=== PATIENT | female | born 1995 | race Caucasian/White ===

== ENCOUNTER 2016-10-22 12:30 | Inpatient (IN) | payer OTHER ==
[2016-10-22] MEDS ORDERED: DEXTROSE 5%-LACTATED RINGERS 1,000 ML IV SCH (16:15)
[2016-10-22 16:20] VITALS: BMI 29.9
[2016-10-22 16:51] LABS: BASOPHIL 0.2 % (0-2.0); EOSINOPHIL 0.4 % (0-4.5); MCHC 34.1 g/dl (32.0-36.0); MEAN CELL VOLUME 93.7 fl (80-96); MEAN PLT VOLUME 8.4 fl (7.5-11.1); NEUTROPHILS 75.5 % (42.8-82.8); PLATELET COUNT 320 K/MM3 (134-434); RDW 13.6 % (11.6-15.6); WHITE BLOOD COUNT 11.3 K/mm3 (4.0-10.0)
[2016-10-22] MEDS ORDERED: BUTORPHANOL TARTRATE 1 MG/ML VIAL IVPUSH ONE (17:00)
[2016-10-22 17:11] LABS: INR 0.91 (0.82-1.09)
--- NOTE | 2016-10-22 17:15 | HP ---
Past Medical History - Primary Care Physician PCP:: Wilfrid Cam - Admission Chief Complaint: 40,2 weeks, by date, labor - Past Medical History ...: 2 ...Para: 1 ...Term: 1 ...: 0 ...Spon : 0 ...Induced : 0 ...Multiple Gestation: 0 ...LMP: 01/14/16 ... Weeks Gestation by Dates: 40.2 ...EDC by Dates: 10/20/16 ...EDC by Sono: 11/02/16 - Past Surgical History Hx Myomectomy: No Hx Transabdominal Cerclage: No - Smoking History Smoking history: Never smoked Have you smoked in the past 12 months: No - Alcohol/Substance Use Hx Alcohol Use: No Home Medications - Allergies Allergies/Adverse Reactions: Allergies Allergy/AdvReac Type Severity Reaction Status Date / Time No Known Allergies Allergy Verified 10/22/16 14:48 - Home Medications Home Medications: Ambulatory Orders Ferrous Sulfate 325 mg PO DAILY 10/22/16 Pnv95/Ferrous Fumarate/FA [ Vitamin Tablet] 1 each PO DAILY 10/22/16 Ibuprofen [Motrin -] 600 mg PO QID #28 tablet 10/23/16 Physical Exam - Maternity Vital Signs: Vital Signs Temperature 97.3 F L 10/22/16 15:20 Pulse Rate 68 10/22/16 17:00 Respiratory Rate 20 10/22/16 17:00 Blood Pressure 100/40 10/22/16 17:00 O2 Sat by Pulse Oximetry (%) - Labs Lab Results: CBC, BMP 10/22/16 16:00
[2016-10-22 17:27] LABS: CALCIUM 8.3 mg/dL (8.5-10.1); CREATININE 0.7 mg/dL (0.55-1.02)
[2016-10-22] MEDS ORDERED: BISACODYL 10 MG SUPP.RECT RC PRN (21:32)
[2016-10-22] MEDS ORDERED: oxyCODONE HCL 5 MG TABLET PO PRN (21:32)
[2016-10-22] MEDS ORDERED: BENZOCAINE 28 GM HEMORRHOIDAL OINTMENT TP PRN (21:32)
[2016-10-22] MEDS ORDERED: BENZOCAINE 20% 57 GM BOTTLE TP PRN (21:32)
[2016-10-22] MEDS ORDERED: METHYLERGONOVINE MALEATE 0.2 MG/1 ML AMP IM PRN (21:32)
[2016-10-22] MEDS ORDERED: WITCH HAZEL 50% (TUCKS) 40 PAD/JAR PAD TP PRN (21:32)
[2016-10-22] MEDS ORDERED: D5W-LR W/ 20 UNITS OXYTOCIN 1,000 ML IV SCH (21:45)
[2016-10-22] MEDS: IBUPROFEN 600 MG TABLET (FP) PO PRN (22:15)
[2016-10-22] MEDS: FERROUS SO4 325 MG TABLET (FP) PO SCH (23:09)
[2016-10-23] MEDS: IBUPROFEN 600 MG TABLET (FP) PO PRN ×3 (05:26→21:26)
[2016-10-23 08:04] LABS: BASOPHIL 0.2 % (0-2.0); EOSINOPHIL 0.3 % (0-4.5); MCH 31.7 pg (25.7-33.7); MEAN CELL VOLUME 93.5 fl (80-96); MEAN PLT VOLUME 8.2 fl (7.5-11.1); NEUTROPHILS 69.8 % (42.8-82.8); PLATELET COUNT 254 K/MM3 (134-434); RDW 13.5 % (11.6-15.6); WHITE BLOOD COUNT 14.2 K/mm3 (4.0-10.0)
[2016-10-23] MEDS: ACETAMINOPHEN 325 MG TABLET (FP) PO PRN (09:01)
[2016-10-23] MEDS: FERROUS SO4 325 MG TABLET (FP) PO SCH ×2 (09:38→21:24)
[2016-10-23] MEDS: PRENATAL VITAMINS W/ FOLIC ACID TABLET (FP) PO SCH (09:41)
[2016-10-23] MEDS ORDERED: INFLUENZA VACCINE 60 MCG/0.5 ML (P/F DISP.SYRIN 16-17) IM ONE (10:00)
[2016-10-23] MEDS ORDERED: PRENATAL VITAMINS W/ FOLIC ACID TABLET (FP) PO SCH (10:00)
[2016-10-23] MEDS ORDERED: PATIENT'S OWN MEDICATION (NON-FORMULARY) (Ferrous Sulfate [Ferrous Sulfate] 325 MG) PO SCH (10:00)
[2016-10-23] MEDS ORDERED: INFLUENZA VACCINE 45 MCG/0.5 ML (MDV 16-17) IM ONE (10:00)
[2016-10-23] MEDS ORDERED: PCA PUMP KEY 1 EACH EACH ONE (11:18)
[2016-10-23] MEDS ORDERED: SENNOSIDES/DOCUSATE COMBO (SENNA PLUS) TABLET (UD) PO PRN (22:00)
[2016-10-24] MEDS: IBUPROFEN 600 MG TABLET (FP) PO PRN (08:31)
[2016-10-24] MEDS: ACETAMINOPHEN 325 MG TABLET (FP) PO PRN (08:33)
[2016-10-24 08:44] VITALS: BP 107/50; PULSE 68; TEMP 98.4
--- NOTE | 2016-10-24 09:28 | PN ---
Post Progress Note - Subjective Subjective: no complains Post Day: 1 Type of Delivery: Vital Signs: Vital Signs Temperature 98.4 F 10/24/16 08:41 Pulse Rate 68 10/24/16 08:41 Respiratory Rate 20 10/24/16 08:41 Blood Pressure 107/50 10/24/16 08:41 O2 Sat by Pulse Oximetry (%) Breast Exam: Yes: Soft. No: Engorged Uterus: Yes: Fundus Firm, Fundus below umbilicus, Non-tender Lochia: Yes: Rubra Lochia, amount: Moderate Extremities: Yes: Calves non-tender Perineum: Yes: Intact Activity: Ambulating - Labs Labs: CBC WBC 14.2 K/mm3 (4.0-10.0) H 10/23/16 07:25 RBC 4.00 M/mm3 (3.60-5.2) 10/23/16 07:25 Hgb 12.7 GM/dL (10.7-15.3) 10/23/16 07:25 Hct 37.3 % (32.4-45.2) 10/23/16 07:25 MCV 93.5 fl (80-96) 10/23/16 07:25 MCHC 34.0 g/dl (32.0-36.0) 10/23/16 07:25 RDW 13.5 % (11.6-15.6) 10/23/16 07:25 Plt Count 254 K/MM3 (134-434) D 10/23/16 07:25 MPV 8.2 fl (7.5-11.1) 10/23/16 07:25 Neutrophils % 69.8 % (42.8-82.8) 10/23/16 07:25 Lymphocytes % 24.3 % (8-40) D 10/23/16 07:25 Monocytes % 5.4 % (3.8-10.2) 10/23/16 07:25 Eosinophils % 0.3 % (0-4.5) 10/23/16 07:25 Basophils % 0.2 % (0-2.0) 10/23/16 07:25 Assessment/Plan stable discharge today.
[2016-10-24] MEDS: FERROUS SO4 325 MG TABLET (FP) PO SCH (09:51)
[2016-10-24] MEDS: PRENATAL VITAMINS W/ FOLIC ACID TABLET (FP) PO SCH (09:52)
--- NOTE | 2016-10-27 08:31 | DS ---
Physical Exam-PSYCHIATRIC ASSISTANT Vital Signs: Vital Signs Temperature 98.4 F 10/24/16 08:41 Pulse Rate 68 10/24/16 08:41 Respiratory Rate 20 10/24/16 08:41 Blood Pressure 107/50 10/24/16 08:41 O2 Sat by Pulse Oximetry (%) Constitutional: Yes: Well Nourished, No Distress, Calm Eyes: Yes: WNL, Conjunctiva Clear, EOM Intact HENT: Yes: WNL, Atraumatic, Normocephalic Neck: Yes: WNL, Supple, Trachea Midline Cardiovascular: Yes: WNL, Regular Rate and Rhythm Respiratory: Yes: WNL, Regular, CTA Bilaterally Gastrointestinal: Yes: WNL ...Rectal Exam: Yes: WNL Renal/: Yes: WNL ....Post : Yes: Uterus firm, Uterus non-tender, Slight lochia rubra Breast(s): Yes: WNL Musculoskeletal: Yes: WNL Extremities: Yes: WNL Integumentary: Yes: WNL Neurological: Yes: WNL, Alert, Oriented ...Motor Strength: WNL Psychiatric: Yes: WNL, Alert, Oriented Labs: CBC, BMP 10/23/16 07:25 10/22/16 16:00 Delivery - Delivery Vaginal Delivery: Spontaneous (no complication) Type of Anesthesia: None Episiotomy/Laceration: Perineal Extension/lac, 1st degree EBL (cc): 300 Delivery, Single - Stages of Labor Date 1st Stage Initiatied: 10/22/16 Time 1st Stage Initiated: 07:00 Date 2nd Stage Initiated: 10/22/16 Time 2nd Stage Initiated: 21:00 Date of Delivery: 10/22/16 Time of Delivery: 21:19 Time Placenta Delivered: 21:25 Placenta: Yes: Spontaneous - Condition of Movie Theater Manager/Counter Supervisor Present: No Gender: Male Weight: 6 lb 6 oz Position: Left, OA Total Hours ROM (Hrs/Mins): 2h - 1 Minute Total Score: 9 5 Minutes Total Score: 9 - [place] Feeding Plan Initial Plan: Elected not to breastfeed exclusively throughout hospitalization Discharge Summary Reason For Visit: LABOR ASSESS Procedures: Principal: Condition: Good - Instructions Diet, Activity, Other Instructions: regular diet, follow up [facility] care 4 weeks PLEASE FOLLOW UP WITH IN FOUR WEEKS IF ANY HEAVY BLEEDING, FEVER, OR SEVERE PAIN CALL WARM LINE: [phone] Referrals: Wilfrid Cam MD [Staff Physician] - Disposition: HOME - Home Medications Comprehensive Discharge Medication List: Ambulatory Orders Ferrous Sulfate 325 mg PO DAILY 10/22/16 Pnv95/Ferrous Fumarate/FA [ Vitamin Tablet] 1 each PO DAILY 10/22/16 Ibuprofen [Motrin -] 600 mg PO QID #28 tablet 10/23/16
== END 2016-10-24 11:47 | disposition home or self-care (01) | DRG 560 ==
LOC: JDEL 12:30 → JLDR 15:20 → J3W 22:52
PROVIDERS: ADMIT Obstetrics & Gynecology; ATTEND Obstetrics & Gynecology
PROC: 10E0XZZ Delivery of Products of Conception, External Approach (ICD-10-PCS; principal; 2016-10-22)
PROC: 0WQNXZZ Repair Female Perineum, External Approach (ICD-10-PCS; 2016-10-22)
DX: O48.0 Post-term pregnancy (principal); O70.0 First degree perineal laceration during delivery; Z3A.40 40 weeks gestation of pregnancy; Z37.0 Single live birth
CPT/HCPCS: 36415; 59409; 80048; 85025; 85610; 85730; 86593; 86850; 86900; 86901; 90686; G0008

== ENCOUNTER 2018-10-28 17:48 | Emergency (ER) | payer OTHER ==
[2018-10-28] MEDS ORDERED: SODIUM CHLORIDE 1,000 ML IV STA (17:53)
--- NOTE | 2018-10-28 17:54 | PDOC ---
Rapid Medical Evaluation Time Seen by Provider: 10/28/18 17:51 Medical Evaluation: Allergies Allergy/AdvReac Type Severity Reaction Status Date / Time No Known Allergies Allergy Verified 10/22/16 14:48 10/28/18 17:51 I have performed a brief in-person evaluation of this patient. The patient presents with a chief complaint of: vaginal bleeding approx 9 weeks preg Pertinent physical exam findings: Pallor present. I have ordered the following: labs, TVUS The patient will proceed to the ED for further evaluation. 10/28/18 17:53 Discharge Disposition - Diagnosis Vaginal bleeding affecting early - Referrals - Patient Instructions - Post Discharge Activity
[2018-10-28 17:57] VITALS: BMI 22.1
--- NOTE | 2018-10-28 18:16 | PDOC ---
Attending Attestation - HPI HPI: 10/28/18 19:31 The patient is a 22 year old female () with no significant past medical history who presents to the emergency department with vaginal bleeding since this morning. The patient states that she took a positive at home test about 1 month ago. She denies any follow up with OB for care. The patient states that she was highly concerned for her secondary to her bleeding. She states that she soaked through about 10 pads today. The patient also reports some associated abdominal pain with her vaginal bleeding. She denies taking any medication. She denies any other symptoms or complaints. <Jeronimo Alvarenga - Last Filed: 10/28/18 19:31> - Resident Resident Name: Renny Vergara - ED Attending Attestation I have performed the following: I have examined & evaluated the patient, The case was reviewed & discussed with the resident, I agree w/resident's findings & plan, Exceptions are as noted - HPI HPI: 10/28/18 18:15 This 22 yo female presents stating she is approx 9 weeks and has vaginal bleeding PMH - Physicial Exam PE: 10/28/18 19:16 wnwd 22 yo female with brisk vaginal bleeding head ncat neck supple lungs cta b/l cvs [id number] ext no e/c/c abd no guarding, no rebound pelvic heavy vaginal bleeding,difficult to access the os,blood fills speculum ,there are large clots skin warm and dry no cvs tenderness neuro axox3,ambulatory - Medical Decision Making 10/28/18 19:18 imp threatened Ab,ectopic preg cbc,T and S, pelvic US,[facility] [place] 10/28/18 22:22 [facility] [place] uS in progress 10/28/18 22:25 Initial hemoglobin was 12 and her hematocrit was 35 Briefly, hemoglobin is 10 and repeat hematocrit is 28 10/28/18 22:[address] Cam and he recommended pitocin gtt 10/29/18 00:57 Dr Cam removed placenta and if the pt's bleeding improved she can be d/c on vibromycin 100 mg BID for one week 10/29/18 02:25 Pt re assessment reveals her vaginal bleeding is much improved and she'll be discharged home with antibiotics and motrin plan follow this week at [address] [place] [address] <Leila Dean - Last Filed: 10/29/18 02:26> Attestations - Attestations 10/28/18 19:32 Documentation prepared by Jeronimo Alvarenga, acting as rn medical surgical for Leila Dean MD <Jeronimo Alvarenga - Last Filed: 10/28/18 19:31>
--- NOTE | 2018-10-28 18:16 | PDOC ---
History of Present Illness - General Chief Complaint: Vaginal Bleeding Stated Complaint: BLEEDING SINCE 11:00 Time Seen by Provider: 10/28/18 17:51 History Source: Patient, Scaler Packer Used Exam Limitations: Language Barrier - History of Present Illness Initial Comments: History is limited by language barrier - [employer] phone used for translation. Patient is standing up in the room - when asked why she says bc my stomach hurts alot and she thinks she is losing the baby. 22 yo f w no reported pmh says that she took a positive home test once month ago and today she started losing alot of blood and is concerned that she is losing her . The vaginal bleeding started this morning at 11 am and has not stopped. She can't calculate how much blood she lost but says alot. She has soaked through more than 10 pads today alone. She also endorses a significant amount of abdominal pain which won't go away. She has not taken any medications for the pain. She has not gone to the clinic yet for any care. She denies having taken any pre- vitamins. PCP: Doesn't know his name FUELS ENGINEER: Dr. Cam PSH: None reported LMP: Aug 19 2018 Social Hx: Denies smoking, alcohol, or other drug usage. Allergies: Seasonal, NKDA Past History - Past Medical History Allergies/Adverse Reactions: Allergies Allergy/AdvReac Type Severity Reaction Status Date / Time No Known Allergies Allergy Verified 10/22/16 14:48 Home Medications: Ambulatory Orders Ferrous Sulfate 325 mg PO DAILY 10/22/16 Pnv No.95/Ferrous Fum/Folic AC [ Vitamin Tablet] 1 each PO DAILY Ibuprofen [Motrin -] 600 mg PO QID #28 tablet 10/23/16 Asthma: No Cancer: No Cardiac Disorders: No COPD: No Diabetes: No HTN: No Seizures: No Thyroid Disease: No - Suicide/Smoking/Psychosocial Hx Smoking History: Never smoked Have you smoked in the past 12 months: No Hx Alcohol Use: No Drug/Substance Use Hx: No Hx Substance Use Treatment: No Review of Systems - Review of Systems Able to Perform ROS?: Yes Comments:: CONSTITUTIONAL: Absent: fever, no chills, no fatigue EYES: Absent: visual changes ENT: Absent: ear pain, no sore throat CARDIOVASCULAR: Absent: chest pain, no palpitations RESPIRATORY: Absent: cough, no SOB GI: Present: Abdominal pain, nausea Absent: no vomiting, no constipation, no diarrhea GENITOURINARY: Present: Hematuria Absent: dysuria, no frequency, no hematuria MUSKULOSKELETAL: Present: Back pain Absent: no arthralgia, no myalgia SKIN: Absent: rash NEURO: Absent: headache *Physical Exam - Vital Signs Last Vital Signs Temp Pulse Resp BP Pulse Ox 98.0 F 97 H 18 116/68 99 10/28/18 17:51 10/28/18 17:51 10/28/18 17:51 10/28/18 17:51 10/28/18 17:51 - Physical Exam Comments: GENERAL: The patient is in a significant amount of pain and crying. Moderate distress. HEENT: Normocephalic, atraumatic. PERRL, EOM intact. CARDIOVASCULAR: Normal S1, S2. Tachycardic rate and regular rhythm. PULMONARY: No evidence of respiratory distress. Lungs clear to auscultation bilaterally. No wheezing, rales or rhonchi. ABDOMEN: There is a significant amount of supra-pubic TTP. EXTREMITIES: Normal ROM in all four extremities. No gross deformities. SKIN: Warm, dry. No rash NEUROLOGICAL: No focal neurological deficits. ED Treatment Course - LABORATORY CBC & Chemistry Diagram: 10/28/18 21:48 10/28/18 18:04 Medical Decision Making - Medical Decision Making History is limited by language barrier - [employer] phone used for translation. Patient is standing up in the room - when asked why she says bc my stomach hurts alot and she thinks she is losing the baby. 22 yo f w no reported pmh says that she took a positive home test once month ago and today she started losing alot of blood and is concerned that she is losing her . The vaginal bleeding started this morning at 11 am and has not stopped. She can't calculate how much blood she lost but says alot. She has soaked through more than 10 pads today alone. She also endorses a significant amount of abdominal pain which won't go away. She has not taken any medications for the pain. She has not gone to the clinic yet for any care. She denies having taken any pre- vitamins. VS: WNL DDx: Inevitable Plan: Labs, Urine, TVUS, Clutch Mechanic consult - Dorina, Analgesia, re-assess. Patient's original Hb was 12.3 on ER admission. 3 hours later Hb decreased to 10. Clutch Mechanic consult - Dorina - He requests patient to be put on 30 units of oxytocin in normal saline and he will come evaluate the patient. Dr. Cam is not sure if he wants to do a D&C. He came down to the Er, examined the patient and took out most of her uterine contents. - He wants her on ptocin and will re-evaluate her at 12:30 am. - Will admit the patient to observation for further care and management. - Patient microblogged to hospitalist for admission at 11:10 - Hospitalist rejected admission and said to admit the patient to [facility]. - Called Dr. Cam for Admission. - Patient signed out to Dr. Agustin to complete patient's admission to [facility] and further disposition. *DC/Admit/Observation/Transfer Diagnosis at time of Disposition: Vaginal bleeding affecting early , Inevitable - Discharge Dispostion Condition at time of disposition: Guarded Decision to Admit order: Yes - Referrals - Patient Instructions - Post Discharge Activity
[2018-10-28 18:22] LABS: BASO % 0.4 % (0-2.0); EOS % 0.5 % (0-4.5); HEMATOCRIT 35.9 % (32.4-45.2); HEMOGLOBIN 12.3 GM/dL (10.7-15.3); LYMPH % 16.8 % (8-40); MCH 32.4 pg (25.7-33.7); MCHC 34.4 g/dl (32.0-36.0); MEAN CELL VOLUME 94.2 fl (80-96); MEAN PLT VOLUME 7.6 fl (7.5-11.1); MONO % 4.9 % (3.8-10.2); NEUT % 77.4 % (42.8-82.8); PLATELET COUNT 313 K/MM3 (134-434); RBC 3.81 M/mm3 (3.60-5.2); WHITE BLOOD COUNT 9.2 K/mm3 (4.0-10.0)
[2018-10-28 18:54] LABS: INR 1.04 (0.83-1.09); PROTHROMBIN TIME (PATIENT) 12.3 SEC (9.7-13.0)
[2018-10-28 19:22] LABS: ALBUMIN 3.9 g/dl (3.4-5.0); ALK PHOS 58 U/L (45-117); ANION GAP 10 MMOL/L (8-16); BILIRUBIN,TOTAL 0.8 mg/dL (0.2-1); BLOOD UREA NITROGEN 10 mg/dL (7-18); CALCIUM 8.5 mg/dL (8.5-10.1); CHLORIDE 105 mmol/L (98-107); CO2 23 mmol/L (21-32); CREATININE 0.5 mg/dL (0.55-1.3); GLUCOSE,RANDOM 118 mg/dL (74-106); POTASSIUM 3.5 mmol/L (3.5-5.1); SGOT/AST 14 U/L (15-37); SGPT/ALT 20 U/L (13-61); SODIUM 138 mmol/L (136-145); TOT PROT 7.2 g/dl (6.4-8.2)
[2018-10-28 20:43] LABS: EPI CELLS 0.7 /HPF (0-5/HPF); PH,URINE 5.5 (5.0-8.0); URINE APPEARANCE CLEAR; URINE BACTERIA 0.2 /hpf (NEGATIVE); URINE BILIRUBIN NEGATIVE (NEGATIVE); URINE CASTS 3 /hpf (0-8); URINE COLOR YELLOW; URINE GLUCOSE (UA) NEGATIVE (NEGATIVE); URINE KETONE TRACE (NEGATIVE); URINE LEUK ESTERASE TRACE (NEGATIVE); URINE NITRITE NEGATIVE (NEGATIVE); URINE PROTEIN TRACE (NEGATIVE); URINE RBC 898 /hpf (0-4); URINE WBC 1 /hpf (0-5)
[2018-10-28 21:58] LABS: BASO % 0.2 % (0-2.0); EOS % 0.5 % (0-4.5); HEMATOCRIT 28.9 % (32.4-45.2); LYMPH % 20.9 % (8-40); MCH 32.7 pg (25.7-33.7); MCHC 34.7 g/dl (32.0-36.0); MEAN CELL VOLUME 94.4 fl (80-96); MEAN PLT VOLUME 7.7 fl (7.5-11.1); NEUT % 73.4 % (42.8-82.8); PLATELET COUNT 258 K/MM3 (134-434); RBC 3.07 M/mm3 (3.60-5.2); RDW 12.8 % (11.6-15.6); WHITE BLOOD COUNT 10.3 K/mm3 (4.0-10.0)
[2018-10-28] MEDS ORDERED: OXYTOCIN 20 UNITS in 0.9% NS 1000 ML INFUS.BAG IV ONE (22:26)
[2018-10-28] MEDS ORDERED: HYDROmorphone HCL CARPU-JECT 2 MG/1 ML DISP.SYRIN IVPUSH ONE (22:38)
[2018-10-28] MEDS ORDERED: HYDROmorphone HCl 2 MG/ML VIAL ONE (22:43)
[2018-10-28] MEDS ORDERED: SODIUM CHLORIDE IVPB ONE (22:45)
[2018-10-28] MEDS ORDERED: OXYTOCIN IVPB ONE (22:45)
[2018-10-28] MEDS ORDERED: OXYTOCIN 30 UNITS in 0.9% NS 30 UNIT/500 ML INFUS.BAG IVPB ONE (22:45)
[2018-10-29] MEDS ORDERED: DOXYCYCLINE HYCLATE 100 MG CAPSULE PO ONE ×2 (00:55→01:05)
--- NOTE | 2018-10-29 00:55 | PDOC ---
*Physical Exam - Vital Signs Last Vital Signs Temp Pulse Resp BP Pulse Ox 98.3 F 74 18 116/62 99 10/28/18 22:22 10/28/18 22:22 10/28/18 22:22 10/28/18 22:22 10/28/18 22:22 ED Treatment Course - LABORATORY CBC & Chemistry Diagram: 10/28/18 21:48 10/28/18 18:04 - ADDITIONAL ORDERS Additional order review: Laboratory Results 10/28/18 10/28/18 10/28/18 19:45 18:04 18:04 PT with INR INR Sodium 138 Potassium 3.5 Chloride 105 Carbon Dioxide 23 Anion Gap 10 BUN 10 Creatinine 0.5 L Creat Clearance w eGFR 154.28 Random Glucose 118 H Calcium 8.5 Total Bilirubin 0.8 AST 14 L ALT 20 Alkaline Phosphatase 58 Total Protein 7.2 Albumin 3.9 Beta HCG, Quant 3353.2 Urine Color Yellow Urine Appearance Clear Urine pH 5.5 Ur Specific [place] 1.025 Urine Protein Trace Urine Glucose (UA) Negative Urine Ketones Trace H Urine Blood 3+ H Urine Nitrite Negative Urine Bilirubin Negative Urine Urobilinogen 1.0 Ur Leukocyte Esterase Trace Urine WBC (Auto) 1 Urine RBC (Auto) 898 Urine Casts (Auto) 3 U Epithel Cells (Auto) 0.7 Urine Bacteria (Auto) 0.2 Blood Type O POSITIVE Antibody Screen Negative 10/28/18 18:04 PT with INR 12.30 INR 1.04 Sodium Potassium Chloride Carbon Dioxide Anion Gap BUN Creatinine Creat Clearance w eGFR Random Glucose Calcium Total Bilirubin AST ALT Alkaline Phosphatase Total Protein Albumin Beta HCG, Quant Urine Color Urine Appearance Urine pH Ur Specific [place] Urine Protein Urine Glucose (UA) Urine Ketones Urine Blood Urine Nitrite Urine Bilirubin Urine Urobilinogen Ur Leukocyte Esterase Urine WBC (Auto) Urine RBC (Auto) Urine Casts (Auto) U Epithel Cells (Auto) Urine Bacteria (Auto) Blood Type Antibody Screen 10/28/18 10/28/18 21:48 18:04 RBC 3.07 L 3.81 MCV 94.4 94.2 MCHC 34.7 34.4 RDW 12.8 13.0 MPV 7.7 7.6 Neutrophils % 73.4 77.4 Lymphocytes % 20.9 D 16.8 D Monocytes % 5.0 4.9 Eosinophils % 0.5 0.5 Basophils % 0.2 0.4 - Medications Given in the ED: ED Medications Discontinued Medications Generic Name Dose Route Start Last Admin Trade Name Morris PRN Reason Stop Dose Admin Hydromorphone HCl 0.5 mg 10/28/18 22:38 10/28/18 22:47 Dilaudid Injection - IVPUSH 10/28/18 22:39 0.5 mg ONCE ONE Administration Sodium Chloride 1,000 mls @ 1,000 mls/hr 10/28/18 17:53 10/28/18 19:08 Normal Saline - IV 10/28/18 18:52 1,000 mls/hr ASDIR STA Administration Oxytocin/Sodium Chloride 20 unit 10/28/18 22:26 10/28/18 23:16 Normal Saline+20 Units Oxytocin - IV 10/28/18 22:27 Not Given ONCE ONE Medical Decision Making - Medical Decision Making 10/29/18 00:[address] Vergara. Patient is a 22 yo w/ no pmh currently experiencing . Patient evaluated by GRANITE POLISHER MACHINE who removed uterine contents earlier this evening. Given pitocin and re-evaluated recently. Dr. Cam removed rest of contents and believes patient safe for discharge if no further bleeding in 1 hour. Will re-evaluate at 0200. 10/29/18 02:02 Patient repeat evaluation significant for minor blood with no clots. Patient safe for discharge to home and outpatient follow-up. ABX sent to patient's pharmacy. Discharging. *DC/Admit/Observation/Transfer Diagnosis at time of Disposition: Vaginal bleeding affecting early , Miscarriage - Discharge Dispostion Disposition: HOME Condition at time of disposition: Guarded - Prescriptions Prescriptions: Doxycycline Hyclate 100 mg PO BID #14 tablet MDD 2 tabs Ibuprofen [Motrin -] 600 mg PO TID PRN #21 tablet MDD 3 tabs PRN Reason: Moderate Pain - Referrals - Patient Instructions Printed Discharge Instructions: DI for Miscarriage Additional Instructions: You were evaluated today in the ER and found to have a miscarriage. GRANITE POLISHER MACHINE evaluated you and removed clots. They have also placed you on antibiotics which were sent to your pharmacy. Take all medications as described. Please follow-up with GRANITE POLISHER MACHINE outpatient this week for further evaluation. Return to ER if any fevers, chills, pain not controllable with motrin, or other concerning symptoms. Usted fue evaluado hoy en la laurie de emergencias y se descubri que tuvo un aborto espontneo. OB / HEMODIALYSIS PATIENT CARE SPECIALIST te evalu y elimin cogulos. Tambin le colocaron antibiticos que fueron enviados a somers farmacia. Bow[place] todos los medicamentos margy se describe. Por favor, derek un seguimiento con ambulatorio OB / HEMODIALYSIS PATIENT CARE SPECIALIST esta semana para fatou evaluacin adicional. Regrese a la laurie de emergencias si tiene fiebre, escalofros, dolor no controlable con motrin u otros sntomas relacionados. Print Language: UPPER SORBIAN - Post Discharge Activity
[2018-10-29 02:29] VITALS: BP 100/56; PULSE 71; TEMP 98.5
--- NOTE | 2018-10-30 14:22 | PATH ---
Surgical Pathology Report Patient Name: LISSETTE ROSE Med. Rec. #: [id number] /Age/Gender: 1995 (Age: 22) / F Account: [id number] Location: EMERGENCY ROOM Taken: 10/28/2018 Received: 10/29/2018 Reported: 10/30/2018 Physicians: Wilfrid Cam M.D. PHYSICIAN EMERGENCY DEPT Specimen(s) Received A: PRODUCTS OF CONCEPTION B: PRODUCTS OF CONCEPTION Clinical History Vaginal bleed, , LMP 08/19/18 Retained products of conception Final Diagnosis A. PRODUCTS OF CONCEPTION, DILATION AND CURETTAGE: IMMATURE CHORIONIC VILLI CONSISTENT WITH PRODUCTS OF CONCEPTION. B. Retained products of conception, DILATION AND CURETTAGE: Blood/ fibrin clot. Electronically Signed Lissette Alvarez M.D. Gross Description A. Received fresh labeled with the patient's name and indicated on the requisition to be products of conception, is a 9.5 x 9.0 x 1.2 cm aggregate of fernandez-red soft tissue fragments admixed with blood clot. Villous tissue is identified. No somatic tissue is identified. A residential sales representative portion is submitted in one cassette. B. Received fresh labeled with the patient's name and indicated on the requisition to be retained products of conception, is a 10.0 x 8.5 x 1.3 cm aggregate of red-brown blood clot. No villous tissue or somatic tissue is identified. A Photographic Intelligence Officer portion is submitted in one cassette. DL/10/29/2018 saudi/10/29/2018
== END 2018-10-29 02:27 | disposition home or self-care (01) ==
LOC: JER 17:48
PROC: 3E0337Z Introduction of Electrolytic and Water Balance Substance into Peripheral Vein, Percutaneous Approach (ICD-10-PCS; principal; 2018-10-28)
PROC: 3E033GC Introduction of Other Therapeutic Substance into Peripheral Vein, Percutaneous Approach (ICD-10-PCS; 2018-10-28)
PROC: 3E033NZ Introduction of Analgesics, Hypnotics, Sedatives into Peripheral Vein, Percutaneous Approach (ICD-10-PCS; 2018-10-28)
DX: O26.891 Other specified pregnancy related conditions, first trimester (principal); O02.1 Missed abortion; Z3A.09 9 weeks gestation of pregnancy
CPT/HCPCS: 36415; 76817-TC; 80053; 81003; 84702; 85025; 85610; 86850; 86900; 86901; 87086; 88305-TC; 99283-25; J7030

== ENCOUNTER 2020-12-07 16:10 | Inpatient (IN) | payer OTHER ==
[2020-12-07 17:18] LABS: BASO % 0.2 % (0-2.0); EOS % 0.1 % (0-4.5); HEMATOCRIT 35.8 % (32.4-45.2); LYMPH % 16.2 % (8-40); MCH 30.5 pg (25.7-33.7); MCHC 33.6 g/dl (32.0-36.0); MEAN CELL VOLUME 90.9 fl (80-96); MEAN PLT VOLUME 8.8 fl (7.5-11.1); MONO % 6.2 % (3.8-10.2); NEUT % 77.3 % (42.8-82.8); PLATELET COUNT 285 K/MM3 (134-434); RBC 3.94 M/mm3 (3.60-5.2); WHITE BLOOD COUNT 10.3 K/mm3 (4.0-10.0)
[2020-12-07 17:26] LABS: INR 0.9 (0.83-1.09); PROTHROMBIN TIME (PATIENT) 10.9 SEC (9.7-13.0)
[2020-12-07 17:29] LABS: ACTIVATED PTT 26.3 SECONDS (25.2-36.5)
[2020-12-07 17:31] VITALS: BMI 29.2
[2020-12-07 18:30] LABS: BLOOD UREA NITROGEN 6.4 mg/dL (7-18); CALCIUM 8.4 mg/dL (8.5-10.1); CREATININE 0.5 mg/dL (0.55-1.3)
[2020-12-07] MEDS ORDERED: OXYTOCIN 20 UNITS in 0.9% NS 20 UNIT/1,000 ML INFUS.BAG IV ONE (19:23)
[2020-12-07] MEDS: ELECTROLYTE-148 SOLN 1,000 ML IV SCH (21:00)
[2020-12-07 22:07] LABS: BASO % 0.4 % (0-2.0); HEMATOCRIT 36.9 % (32.4-45.2); HEMOGLOBIN 12.4 GM/dL (10.7-15.3); LYMPH % 12.9 % (8-40); MCH 30.3 pg (25.7-33.7); MCHC 33.7 g/dl (32.0-36.0); MEAN PLT VOLUME 8.5 fl (7.5-11.1); MONO % 4.5 % (3.8-10.2); NEUT % 82.2 % (42.8-82.8); PLATELET COUNT 278 K/MM3 (134-434); WHITE BLOOD COUNT 13.7 K/mm3 (4.0-10.0)
[2020-12-07 22:14] LABS: INR 0.89 (0.83-1.09); PROTHROMBIN TIME (PATIENT) 10.8 SEC (9.7-13.0)
[2020-12-07] MEDS: OXYTOCIN 20 UNITS in 0.9% NS 20 UNIT/1,000 ML INFUS.BAG IV SCH (22:15)
[2020-12-07] MEDS ORDERED: BENZOCAINE 28 GM HEMORRHOIDAL OINTMENT TP PRN (22:21)
[2020-12-07] MEDS ORDERED: BISACODYL 10 MG SUPP.RECT RC PRN (22:21)
[2020-12-07] MEDS ORDERED: METHYLERGONOVINE MALEATE 0.2 MG/1 ML AMP IM PRN (22:21)
[2020-12-07] MEDS ORDERED: WITCH HAZEL 50% (TUCKS) 40 PAD/JAR PAD TP PRN (22:21)
[2020-12-07] MEDS ORDERED: BENZOCAINE 20% 57 GM BOTTLE TP PRN (22:21)
[2020-12-07 22:42] LABS: CALCIUM 8.5 mg/dL (8.5-10.1)
[2020-12-07 22:43] LABS: BLOOD UREA NITROGEN 5.2 mg/dL (7-18)
[2020-12-07 22:46] LABS: CREATININE 0.5 mg/dL (0.55-1.3)
[2020-12-07 22:56] LABS: SARS COV 2 AB TOTAL REACTIVE (NONREACTIVE)
[2020-12-07 23:07] LABS: SYPHILIS W/ RPR CONF NON-REACTIVE (NONREACTIVE)
[2020-12-07 23:36] LABS: HIV INTERPRETATION NEGATIVE (NEGATIVE)
[2020-12-08] MEDS ORDERED: ACETAMINOPHEN 325 MG TABLET (FP) ONE (00:10)
[2020-12-08] MEDS: ACETAMINOPHEN 325 MG TABLET (FP) PO PRN ×5 (00:18→20:59)
[2020-12-08] MEDS: IBUPROFEN 600 MG TABLET (FP) PO PRN ×4 (03:43→20:58)
[2020-12-08 08:55] LABS: BASO % 0.4 % (0-2.0); EOS % 0.1 % (0-4.5); HEMATOCRIT 34.1 % (32.4-45.2); HEMOGLOBIN 11.7 GM/dL (10.7-15.3); LYMPH % 17.6 % (8-40); MCHC 34.3 g/dl (32.0-36.0); MEAN CELL VOLUME 90.2 fl (80-96); MEAN PLT VOLUME 8.7 fl (7.5-11.1); MONO % 8.1 % (3.8-10.2); NEUT % 73.8 % (42.8-82.8); PLATELET COUNT 256 K/MM3 (134-434); RBC 3.79 M/mm3 (3.60-5.2); RDW 13.7 % (11.6-15.6); WHITE BLOOD COUNT 14.5 K/mm3 (4.0-10.0)
[2020-12-08] MEDS: PRENATAL VITAMINS W/ FOLIC ACID TABLET (FP) PO SCH (09:06)
[2020-12-08] MEDS ORDERED: SENNOSIDES/DOCUSATE COMBO (SENNA PLUS) TABLET (UD) PO PRN (22:00)
[2020-12-08] MEDS: OXYTOCIN 20 UNITS in 0.9% NS 20 UNIT/1,000 ML INFUS.BAG IV SCH (22:47)
[2020-12-08] MEDS: ELECTROLYTE-148 SOLN 1,000 ML IV SCH (22:47)
[2020-12-09] MEDS: PRENATAL VITAMINS W/ FOLIC ACID TABLET (FP) PO SCH (10:00)
[2020-12-09 12:46] VITALS: BP 103/57; PULSE 66; TEMP 97.8
== END 2020-12-09 16:20 | disposition home or self-care (01) | DRG 560 ==
LOC: JLDR 16:10 → J3W 12-08 00:58
PROVIDERS: ADMIT Obstetrics & Gynecology; ATTEND Obstetrics & Gynecology
PROC: 10E0XZZ Delivery of Products of Conception, External Approach (ICD-10-PCS; principal; 2020-12-07)
PROC: 10907ZC Drainage of Amniotic Fluid, Therapeutic from Products of Conception, Via Natural or Artificial Opening (ICD-10-PCS; 2020-12-07)
DX: O80 Encounter for full-term uncomplicated delivery (principal); Z3A.39 39 weeks gestation of pregnancy; Z37.0 Single live birth
CPT/HCPCS: 36415; 59409; 80048; 85025; 85610; 85730; 86769; 86780; 86850; 86900; 86901; 87389; C9803; U0003; U0005

== ENCOUNTER 2023-02-25 05:13 | Day surgery (SDC) | payer OTHER ==
[2023-02-25] MEDS ORDERED: FAMOTIDINE 20 MG/50 ML IVPB 20 MG/50 ML MG IVPB ONE ×2 (06:12→06:25)
[2023-02-25] MEDS ORDERED: SODIUM CHLORIDE 0.9% 500 ML INFUS.BAG IV ONE (06:12)
[2023-02-25] MEDS ORDERED: MAG HYDROX/AL HYDROX/SIMETH 30 ML UNIT-DOSE CUP PO ONE (06:12)
[2023-02-25] MEDS ORDERED: ACETAMINOPHEN 1000 MG/100 ML BAG IVPB ONE (06:12)
[2023-02-25] MEDS ORDERED: ONDANSETRON 4 MG/2 ML VIAL IVPUSH ONE (06:12)
[2023-02-25] MEDS ORDERED: ONDANSETRON 4 MG/2 ML VIAL ONE (06:25)
[2023-02-25] MEDS ORDERED: ACETAMINOPHEN INJECTION 100 ML IVPB ONE (06:25)
[2023-02-25] MEDS ORDERED: MAG HYDROX/AL HYDROX/SIMETH 30 ML UNIT-DOSE CUP ONE (06:25)
[2023-02-25 06:41] LABS: BASO % 0.1 % (0-2.0); EOS % 0.1 % (0-4.5); HEMATOCRIT 42.4 % (32.4-45.2); HEMOGLOBIN 14.4 GM/dL (10.7-15.3); LYMPH % 6.8 % (8-40); MCH 30.7 pg (25.7-33.7); MCHC 33.9 g/dl (32.0-36.0); MEAN CELL VOLUME 90.6 fl (80-96); MONO % 5.9 % (3.8-10.2); NEUT % 87.1 % (42.8-82.8); PLATELET COUNT 317 10^3/uL (134-434); RBC 4.68 M/mm3 (3.60-5.2); RDW 12.8 % (11.6-15.6); WHITE BLOOD COUNT 18.2 K/mm3 (4.0-10.0)
[2023-02-25 06:45] LABS: POTASSIUM 3.5 mmol/L (3.5-5.1)
[2023-02-25 06:48] LABS: BLOOD UREA NITROGEN 6.7 mg/dL (7-18); CALCIUM 8.9 mg/dL (8.5-10.1); MAGNESIUM 2.1 mg/dL (1.8-2.4)
[2023-02-25 06:50] LABS: CREATININE 0.7 mg/dL (0.55-1.3)
[2023-02-25 06:53] LABS: BILIRUBIN,TOTAL 1.3 mg/dL (0.2-1); TOT PROT 7.4 g/dl (6.4-8.2)
[2023-02-25 07:00] LABS: EPI CELLS 30 /uL (0-25.1); HYALINE CASTS 1 /uL (0-3.1); URINE APPEARANCE CLEAR; URINE BACTERIA 279 /uL (0-1359); URINE BILIRUBIN NEGATIVE (NEGATIVE); URINE COLOR YELLOW; URINE GLUCOSE (UA) NEGATIVE (NEGATIVE); URINE KETONE TRACE (NEGATIVE); URINE LEUK ESTERASE TRACE (NEGATIVE); URINE NITRITE NEGATIVE (NEGATIVE); URINE PROTEIN TRACE (NEGATIVE); URINE RBC 92 /uL (0-23.9); URINE WBC 16 /uL (0-25.8)
[2023-02-25 07:16] VITALS: BMI 25.4
[2023-02-25] MEDS ORDERED: morphine CARPU-JECT 4 MG/1 ML DISP.SYRIN IVPUSH ONE (07:49)
[2023-02-25 08:24] LABS: INR 1.11 (0.83-1.09); PROTHROMBIN TIME (PATIENT) 12.9 SEC (9.7-13.0)
[2023-02-25] MEDS ORDERED: morphine SULFATE 4 MG/ML VIAL ONE (08:28)
[2023-02-25] MEDS ORDERED: PIPERACILLIN/TAZOB 4.5 GM 4.5 GM in DEXTROSE 5%-WATER 100 ML IVPB ONE (08:50)
[2023-02-25] MEDS ORDERED: PIPERACILLIN/TAZOB 4.5 GM 4.5 GM/100 ML BAG IVPB ONE (09:19)
[2023-02-25] MEDS ORDERED: HYDROmorphone HCl 2 MG/ML VIAL ONE (10:55)
[2023-02-25] MEDS ORDERED: SUCCINYLCHOLINE CHLORIDE 200 MG/10 ML SYRINGE ONE (10:56)
[2023-02-25] MEDS ORDERED: PROPOFOL 40 ML ONE (10:56)
[2023-02-25] MEDS ORDERED: ROCURONIUM BROMIDE 50 MG/5 ML SYRINGE ONE (10:56)
[2023-02-25] MEDS ORDERED: MIDAZOLAM HCL 2 MG/2 ML SINGLE DOSE VIAL ONE (10:56)
[2023-02-25] MEDS ORDERED: PHENYLEPHRINE HCL 10 MG/1 ML SINGLE DOSE VIAL ONE (12:04)
[2023-02-25] MEDS ORDERED: GLYCOPYRROLATE 0.2 MG/1 ML VIAL ONE (12:13)
[2023-02-25] MEDS ORDERED: NEOSTIGMINE METHYLSULFATE 0.5 MG/1 ML - 10 ML MDV ONE (12:13)
[2023-02-25] MEDS ORDERED: BUPIVACAINE HCL/PF 0.5% (5MG/ML) 10 ML VIAL IJ ONE (12:21)
[2023-02-25] MEDS ORDERED: LIDOCAINE 1% P/F 10 MG/ML VIAL INF ONE (12:21)
[2023-02-25] MEDS ORDERED: SUGAMMADEX SODIUM 200 MG/2 ML VIAL ONE (12:39)
[2023-02-25] MEDS ORDERED: LACTATED RINGERS SOLUTION 1,000 ML IV SCH (13:15)
[2023-02-25] MEDS ORDERED: oxyCODONE HCL 5 MG TABLET PO PRN (13:16)
[2023-02-25] MEDS: LACTATED RINGERS SOLUTION 1,000 ML IV SCH (16:00)
[2023-02-25] MEDS: ACETAMINOPHEN 1000 MG/100 ML BAG IVPB SCH (17:51)
[2023-02-25] MEDS ORDERED: KETOROLAC TROMETHAMINE 30 MG/1 ML VIAL IM PRN (18:30)
[2023-02-25] MEDS: DOCUSATE SODIUM 100 MG CAPSULE (FP) PO SCH (21:39)
[2023-02-26] MEDS: ACETAMINOPHEN 1000 MG/100 ML BAG IVPB SCH ×3 (01:02→12:13)
[2023-02-26] MEDS: DOCUSATE SODIUM 100 MG CAPSULE (FP) PO SCH ×2 (05:32→13:00)
[2023-02-26 09:01] VITALS: RESP 20
[2023-02-26 09:08] LABS: POTASSIUM 3.5 mmol/L (3.5-5.1)
[2023-02-26 09:15] LABS: CALCIUM 8.4 mg/dL (8.5-10.1); MAGNESIUM 2.2 mg/dL (1.8-2.4)
[2023-02-26 09:18] LABS: BLOOD UREA NITROGEN 6.7 mg/dL (7-18)
[2023-02-26 09:19] LABS: CREATININE 0.7 mg/dL (0.55-1.3)
[2023-02-26 09:21] LABS: BILIRUBIN,TOTAL 1.3 mg/dL (0.2-1)
[2023-02-26 09:25] LABS: ALBUMIN 2.9 g/dl (3.4-5.0)
[2023-02-26 09:26] LABS: BASO % 0.3 % (0-2.0); EOS % 0.3 % (0-4.5); HEMATOCRIT 36.4 % (32.4-45.2); HEMOGLOBIN 12.5 GM/dL (10.7-15.3); LYMPH % 19.4 % (8-40); MCHC 34.4 g/dl (32.0-36.0); MEAN PLT VOLUME 8.2 fl (7.5-11.1); MONO % 7.7 % (3.8-10.2); NEUT % 72.3 % (42.8-82.8); PLATELET COUNT 268 10^3/uL (134-434); RBC 4.05 M/mm3 (3.60-5.2); RDW 13.4 % (11.6-15.6); WHITE BLOOD COUNT 12.8 K/mm3 (4.0-10.0)
[2023-02-26] MEDS: LACTATED RINGERS SOLUTION 1,000 ML IV SCH (09:42)
[2023-02-26 17:53] VITALS: BP 98/59; PULSE 66; TEMP 98.2
== END 2023-02-26 17:59 | disposition home or self-care (01) ==
LOC: JER 05:13 → JERBED 09:34 → UNDOADMIN 09:34 → JASUSAT 09:34 → J8W 15:26 → JERBED 15:26 → JASUSAT 02-26 17:59
PROVIDERS: ATTEND Family Medicine
PROC: 0DTJ4ZZ Resection of Appendix, Percutaneous Endoscopic Approach (ICD-10-PCS; principal; 2023-02-25 17:00)
DX: K35.890 Other acute appendicitis without perforation or gangrene (principal)
CPT/HCPCS: 36415; 74177-TC; 80053; 81003; 83690; 83735; 84484; 84703; 85025; 85610; 85730; 86850; 86900; 86901; 87086; 88304-TC; 93005; 93010; 94760; 99285-25; Q9967